=== PATIENT | female | born 1945 | race Caucasian/White ===

== ENCOUNTER 2020-04-09 07:06 | Outpatient (NON) | payer MEDICARE, SELFPAY ==
[2020-04-09 18:21] LABS: SARS-CoV-2 RNA PCR Negative
== END 2020-04-09 07:07 ==
PROVIDERS: PCP Family Medicine; Visit Provider Family Medicine
DX: Z20.828 Contact with and (suspected) exposure to other viral communicable diseases (principal); J02.9 Acute pharyngitis, unspecified
CPT/HCPCS: 87635; C9803; U0003

== ENCOUNTER → 2021-01-19 12:37 | Outpatient (CLI) | payer MEDICARE, SELFPAY ==
--- NOTE | ~2021-01-19 | MM_ITS ---
EXAMINATION: MM screening [facility] BI w jose HISTORY: Screening mammogram, history of right breast cancer TECHNIQUE: Craniocaudal and mediolateral oblique 3-D tomosynthesis images were obtained and synthetic 2-D images were generated. CAD analysis was submitted and interpreted. COMPARISON: 07/15/2019, 08/11/2016, 12/22/2014 BREAST PARENCHYMAL COMPOSITION: There are scattered areas of fibroglandular density. FINDINGS: Again noted are stable lumpectomy changes in the right breast and changes of right axillary lymph node dissection. There is no evidence of suspicious mass, calcification, or architectural dist ortion to suggest malignancy in either breast. There has been no suspicious interval change. IMPRESSION: 1. No mammographic evidence of malignancy. 2. Recommend routine screening mammography in one year. BI-RADS Category 2: Benign finding(s). Reviewed, dictated and finalized at location A.
== END ==
PROVIDERS: Visit Provider Obstetrics & Gynecology
DX: Z12.31 Encounter for screening mammogram for malignant neoplasm of breast (principal)
CPT/HCPCS: 77063; 77067

== ENCOUNTER 2021-08-04 00:17 | Day surgery (SDC) | payer MEDICARE, SELFPAY ==
[2021-07-19 15:08] VITALS: BMI 21.4
--- NOTE | 2021-08-03 13:57 | WPDANESEPPF ---
Anes - Initial Pre Proc Eval Procedure: Operation Date: 08/04/21 08:30 Proposed Procedures p Screening Colonoscopy - Jj Adorno MD Date/Time: 08/03/21 13:57 Surgeon: Jj Adorno MD Pre Op Diagnosis: family hx of colon ca Patient Data Age: 75 Gender: F Height: 1.6 m Weight: 55 kg Allergies Allergy/AdvReac Type Severity Reaction Status Date / Time nickel Allergy Mild RED SKIN Verified 08/04/21 07:37 /ITCHING Sulfa (Sulfonamide Allergy Unknown Unknown Verified 08/04/21 07:37 Antibiotics) sulfanilamide Allergy Unknown Unknown Verified 08/04/21 07:37 BEE STINGS Allergy Severe SEIZURES Uncoded 08/04/21 07:37 Home Medications Medication Instructions Recorded Confirmed Type albuterol sulfate 90 mcg/actuation 2 puff INHALATION Q4H PRN #8.5 g 10/18/20 08/04/21 Rx aerosol inhaler levothyroxine 100 mcg tablet 100 mcg PO DAILY #90 tablet 11/03/20 08/04/21 Rx Vitamin D3 1 tab-cap PO DAILY 07/19/21 08/04/21 History magnesium 1 tab-cap PO DAILY 07/19/21 08/04/21 History vitamin B complex [B 1 tablet PO DAILY 07/19/21 08/04/21 History Complex-Vitamin B12] amlodipine 5 mg tablet 5 mg PO DAILY #90 tablet 08/01/21 08/04/21 Rx Patient hx anesthesia problems: none Family hx anesthesia problems: none Results Review: All pre-operative results and documents have been reviewed as part of the pre-operative evaluation. [facility] Past Medical History Medical History (Updated 08/03/21 @ 13:58 by Ray Pereira DO) Acute non-recurrent maxillary sinusitis Cataract cortical, senile Chronic obstructive pulmonary disease, unspecified Colon cancer screening GERD (gastroesophageal reflux disease) Hypertension Mixed hyperlipidemia Onychomycosis Plantar fasciitis, bilateral Sore throat Tarsal tunnel syndrome of both lower extremities UTI (urinary tract infection) Surgical History Surgical History S/P foot surgery, left Family History Family History Mother Hypertension Carcinoma of colon Family history of diabetes mellitus in first degree relative Family history of coronary artery disease, Onset Age: 88 Patient's mother is Grandparent Hypertension Cerebrovascular accident Family history of coronary artery disease Social History Social History Smoking status: Former smoker Tobacco type: cigarettes Second hand tobacco smoke exposure: No Smoking end date: 08/06/80 Additional smoking assessment comments: very light smoker- for 3 years back in 1960's (few cigarettes per day) Alcohol intake: current Drinks per week: 14 Alcohol use details: 2 glasses of wine per day Substance use: never Substance use type: does not use Living arrangements: with family Anes - Eval Final PreProcedure Day of Procedure 08/03/21 13:57 Patient weight: normal Heart: regular rate and rhythm Lungs: clear to auscultation and normal air movement Airway: Mallampati scale class II Neurological: alert and oriented Last oral intake: >/= 8 hours ASA classification: III Emergent: no Anesthetic plan: proceed Anesthesia type and monitoring: general GIVS and standard monitoring Results Review: All pre-operative results and documents have been reviewed as part of the pre-operative evaluation. Informed Consent: The patient's anesthetic plan and its attendant risks and benefits were discussed with the patient/family/POA. Questions were solicited and answers provided to the satisfaction of the patient/family/POA.
[2021-08-04 07:41] VITALS: BP 147/98; PULSE 75; RESP 16; TEMP 36.3; O2SAT 97
[2021-08-04] MEDS: LACTATED RINGERS 1,000 ML 150 ML IV CONT (07:47)
--- NOTE | 2021-08-04 08:11 | WPDGICN ---
Assessment and Plan Assessment and plan (1) Family history of colon cancer in mother: Code(s): Z80.0 - Family history of malignant neoplasm of digestive organs Status: Acute Assessment and Plan: Patient has a family history of colon cancer in her mother for this reason surveillance colonoscopy is recommended now on a 5 year intervals in the future. GI Consult Note Consult date/time: 08/04/21 08:11 HPI: Molly Gutierrez is a 75 year old female Presents for screening colonoscopy. Patient reports that her current weight appetite bowel movements are normal. Patient's family history is significant that her mother had colon cancer. Patient's last colonoscopy 6 or 7 years ago was unremarkable. Her bowel habits currently are normal. She presents today for neoplasia screening. Review of Systems Review of Systems: All systems reviewed & are unremarkable except as noted in HPI and below PMFSH Past Medical History Medical History (Updated 08/04/21 @ 08:12 by Jj Adorno MD) Acute non-recurrent maxillary sinusitis Cataract cortical, senile Chronic obstructive pulmonary disease, unspecified Colon cancer screening GERD (gastroesophageal reflux disease) Hypertension Mixed hyperlipidemia Onychomycosis Plantar fasciitis, bilateral Sore throat Tarsal tunnel syndrome of both lower extremities UTI (urinary tract infection) Surgical History Surgical History S/P foot surgery, left Family History Family History Mother Hypertension Carcinoma of colon Family history of diabetes mellitus in first degree relative Family history of coronary artery disease, Onset Age: 88 Patient's mother is Grandparent Hypertension Cerebrovascular accident Family history of coronary artery disease Social History Social History Smoking status: Former smoker Tobacco type: cigarettes Second hand tobacco smoke exposure: No Smoking end date: 08/06/80 Additional smoking assessment comments: very light smoker- for 3 years back in 1960's (few cigarettes per day) Alcohol intake: current Drinks per week: 14 Alcohol use details: 2 glasses of wine per day Substance use: never Substance use type: does not use Living arrangements: with family Meds Home Medications and Allergies Home Medications Medication Instructions Recorded Confirmed Type albuterol sulfate 90 mcg/actuation 2 puff INHALATION Q4H PRN #8.5 g 03/15/21 12/30/21 Rx aerosol inhaler levothyroxine 100 mcg tablet 100 mcg PO DAILY #90 tablet 11/03/20 08/04/21 Rx Vitamin D3 1 tab-cap PO DAILY 07/19/21 08/04/21 History magnesium 1 tab-cap PO DAILY 07/19/21 08/04/21 History vitamin B complex [B 1 tablet PO DAILY 07/19/21 08/04/21 History Complex-Vitamin B12] amlodipine 5 mg tablet 5 mg PO DAILY #90 tablet 08/01/21 08/04/21 Rx Allergies Allergy/AdvReac Type Severity Reaction Status Date / Time nickel Allergy Mild RED SKIN Verified 08/04/21 07:37 /ITCHING Sulfa (Sulfonamide Allergy Unknown Unknown Verified 08/04/21 07:37 Antibiotics) sulfanilamide Allergy Unknown Unknown Verified 08/04/21 07:37 BEE STINGS Allergy Severe SEIZURES Uncoded 08/04/21 07:37 Vital Signs Vital Signs - 24 hr 08/04/21 07:41 Temperature 97.4 F L Pulse Rate 75 Respiratory Rate 16 Blood Pressure 147/98 H Pulse Oximetry 97 Exam Narrative: Physical exam reveals patient to be alert. Vital signs stable. HEENT exam is unremarkable. Patient is anicteric. Lungs are clear to auscultation and percussion. Heart is without murmur or extra sounds. Abdominal exam bowel sounds present soft nontender with no organomegaly. Digital external rectal exam is normal.
[2021-08-04 08:41] VITALS: BP 107/66; PULSE 72; RESP 20; O2SAT 98
[2021-08-04 08:51] VITALS: BP 110/64; PULSE 73; RESP 20; O2SAT 98
[2021-08-04 09:01] VITALS: BP 116/77; PULSE 64; RESP 19; O2SAT 98
--- NOTE | 2021-08-04 09:06 | SUR.PHASEII ---
RN spoke with patient's significant other, John, and provided patient status update
== END 2021-08-04 09:19 | disposition home or self-care (01) ==
PROVIDERS: PCP Family Medicine; Visit Provider Internal Medicine Gastroenterology
PROC: 0DJD8ZZ Inspection of Lower Intestinal Tract, Via Natural or Artificial Opening Endoscopic (ICD-10-PCS; CPT 45378; principal; 2021-08-04 08:30)
DX: Z12.11 Encounter for screening for malignant neoplasm of colon (principal); Z80.0 Family history of malignant neoplasm of digestive organs; K64.8 Other hemorrhoids; J44.9 Chronic obstructive pulmonary disease, unspecified; K21.9 Gastro-esophageal reflux disease without esophagitis; I10 Essential (primary) hypertension; E78.2 Mixed hyperlipidemia; B35.1 Tinea unguium; M72.2 Plantar fascial fibromatosis; G57.53 Tarsal tunnel syndrome, bilateral lower limbs; Z87.891 Personal history of nicotine dependence; Z79.51 Long term (current) use of inhaled steroids; E03.9 Hypothyroidism, unspecified
CPT/HCPCS: G0105; J2704; J7120

== ENCOUNTER → 2021-08-17 16:53 | Outpatient (CLI) | payer MEDICARE, SELFPAY ==
--- NOTE | ~2021-08-17 | XR_ITS ---
EXAMINATION: XR chest 2V DATE: 08/17/2021 17:05 INDICATION: Acute bronchitis, persistent cough TECHNIQUE: PA and lateral views of the chest are obtained. COMPARISON: 06/14/2017, 02/16/2015 FINDINGS: The lungs are free of acute opacities. There is a chronic and unchanged nodular opacity pro jecting anteriorly in the right upper lobe. Surgical changes are noted in the right breast and right axilla. There is no pleural effusion or pneumothorax. The cardiomediastinal silhouette is normal. The re is moderate thoracic spondylosis. IMPRESSION: 1. No acute cardiopulmonary abnormality. Reviewed, dictated and finalized at location F. MING PROFESSOR
== END ==
PROVIDERS: PCP Family Medicine; Visit Provider Family Medicine
DX: J20.9 Acute bronchitis, unspecified (principal)
CPT/HCPCS: 71046

== ENCOUNTER → 2021-09-13 13:34 | Outpatient (CLI) | payer MEDICARE, SELFPAY ==
--- NOTE | ~2021-09-13 | DEXA_ITS ---
Bone Density Report Name: PENG POSADAS Age: 76 Sex: Female Ethnicity: White Date of : 1945 Indication: osteopenia; height loss; postmenopausal Referring Provider: DECLAN SCHMITT Study: Bone densitometry was performed. Exam Date: September 13, 2021 Accession number: [id number] Bone Density: Region BMD T-score Z-score Classification AP Spine (L1-L4) 0.796 -2.3 0.1 Osteopenia Femoral Neck (Left) 0.679 -1.5 0.6 Osteopenia Total Hip (Left) 0.815 -1.0 0.7 Normal Femoral Neck (Right) 0.669 -1.6 0.5 Osteopenia Total Hip (Right) 0.821 -1.0 0.8 Normal Total Hip Mean 0.818 -1.0 0.8 Normal World Health Organization criteria for BMD impression classify patients as: Normal (T-score at or above -1.0), Osteopenia (T-score between -1.0 and -2.5), or Osteoporosis (T-score at or below -2.5). 10-year Fracture Risk(1): Major Osteoporotic Fracture 11% Hip Fracture 2.4% Reported Risk Factors: [place] (), Neck BMD=0.669, BMI=21.9 (1) FRAX(R) Version 3.08. Fracture probability calculated for an untreated patient. Fracture probability may be lower if the patient has received treatment. Previous Exams: Region Exam Age BMD T-score BMD Change BMD Change Date g/cm2 vs Baseline vs Previous AP Spine(L1-L4) 09/13/2021 76 0.796 -2.3 -0.075* -0.075* 08/23/2015 69 0.872 -1.6 Total Hip(Left) 09/13/2021 76 0.815 -1.0 -0.083* -0.083* 08/23/2015 69 0.899 -0.4 Total Hip(Right) 09/13/2021 76 0.821 -1.0 -0.060* -0.060* 08/23/2015 69 0.881 -0.5 *Denotes significance at 95% confidence level, LSC for AP Spine = 0.022 g/cm2, LSC for Total Hip = 0.027 g/cm2 Clinical Information Provided by Patient: Has used the following medications: Vitamin D Patient maximum height was 63.5 Menopause Age: 47 Drinks caffeinated beverages Onset of menses at age 15 Number of children 0 Impression: The patient has low bone mass, based on the Total Spine T-score. The patient has an estimated ten-year risk of hip fracture of 2.4% and an estimated ten-year risk of major fracture of 11%, based on the WHO FRAX algorithm. The BMD for the AP Spine(L1-L4) decreased, changing by -0.075 since the last DXA exam. The BMD for the Total Hip(Left) decreased, changing by -0.083 since the last DXA exam. The BMD for the Total Hip(Right) decreased, changing by -0.060 since the last DXA exam. Discussion: BONE DENSITY IS LOW A
== END ==
PROVIDERS: PCP Family Medicine; Visit Provider Obstetrics & Gynecology
DX: Z78.0 Asymptomatic menopausal state (principal); M85.89 Other specified disorders of bone density and structure, multiple sites
CPT/HCPCS: 77080

== ENCOUNTER → 2022-03-01 13:18 | Outpatient (CLI) | payer MEDICARE, SELFPAY ==
--- NOTE | ~2022-03-01 | MM_ITS ---
EXAMINATION: MM screening [facility] BI w jose HISTORY: Screening mammogram TECHNIQUE: Craniocaudal and mediolateral oblique 3-D tomosynthesis images were obtained and synthetic 2-D images were generated. CAD analysis was submitted and interpreted. COMPARISON: 01/19/2021, 07/15/2019 bilateral screening mammogram examinations BREAST PARENCHYMAL COMPOSITION: There are scattered areas of fibroglandular density. FINDINGS: There is postoperative change and scarring and retraction in the upper outer quadrant of th e right breast, stable since 07/15/2019. Right axillary surgical clips from prior axillary node disse ction. There is no evidence of suspicious mass, calcification, or architectural distortion to suggest malignancy in either breast. There has been no suspicious interval change. IMPRESSION: 1. Status post right partial mastectomy and axillary node dissection for right breast malignancy. No mammographic evidence of malignancy. 2. Recommend routine screening mammography in one year. BI-RADS Category 2: Benign finding(s). Reviewed, dictated and finalized at location A.
== END ==
PROVIDERS: PCP Family Medicine; Visit Provider Obstetrics & Gynecology
DX: Z12.31 Encounter for screening mammogram for malignant neoplasm of breast (principal)
CPT/HCPCS: 77063; 77067

== ENCOUNTER → 2023-05-17 12:07 | Outpatient (CLI) | payer MEDICARE, SELFPAY ==
--- NOTE | ~2023-05-17 | MM_ITS ---
EXAMINATION: MM screening rona BI w jose HISTORY: Screening mammogram TECHNIQUE: Craniocaudal and mediolateral oblique 3-D tomosynthesis images were obtained and synthetic 2-D images were generated. CAD analysis was submitted and interpreted. COMPARISON: 03/01/2022, 6 I , 07/15/2019 bilateral screening mammogram examinations BREAST PARENCHYMAL COMPOSITION: There are scattered areas of fibroglandular density. FINDINGS: Postsurgical changes in addition to chronic scarring, architectural distortion and overlyin g retraction are noted at the upper outer quadrant of the right breast. There is no evidence of suspicious mass, calcification, or new architectural distortion to suggest ma lignancy in either breast. There has been no suspicious interval change. IMPRESSION: 1. Status post right partial mastectomy for breast cancer. No mammographic evidence of malignancy. 2. Recommend routine screening mammography in one year. BI-RADS Category 2: Benign finding(s). Reviewed, dictated and finalized at location A. IMPRESSION: 1. Status post right partial mastectomy for breast cancer. No mammographic evid ence of malignancy. 2. Recommend routine screening mammography in one year. BI-RADS Category 2: Benign finding(s).
== END ==
PROVIDERS: PCP Family Medicine; Visit Provider Obstetrics & Gynecology
DX: Z12.31 Encounter for screening mammogram for malignant neoplasm of breast (principal)
CPT/HCPCS: 77063; 77067

== ENCOUNTER → 2023-06-12 09:41 | Outpatient (CLI) | payer MEDICARE, SELFPAY ==
--- NOTE | ~2023-06-12 | US_ITS ---
EXAMINATION: US thyroid DATE: 06/12/2023 10:12 INDICATION: Nontoxic goiter, unspecified. TECHNIQUE: Multiple ultrasound images of the thyroid were obtained. COMPARISON: None. FINDINGS: The right thyroid lobe measures 6.7 x 2.9 x 3.4 cm. The left thyroid lobe measures 6.4 x 3.4 x 3.1 c m. The thyroid is filled with nodules of similar ultrasound appearance without normal intervening pa renchyma. For example, in the right thyroid lobe there is a 1.8 cm solid, isoechoic, wider than tall nodule with ill-defined margin without echogenic foci (TI-RADS TR3). In the right thyroid lobe, there is a 2.0 cm solid, isoechoic, wider than tall nodule with smooth margin without echogenic foci (TR3) . IMPRESSION: 1. Multinodular goiter. Consider thyroid ultrasound in one year. Reviewed, dictated and finalized at location E. STACKER
== END ==
PROVIDERS: PCP Family Medicine; Visit Provider Obstetrics & Gynecology
DX: E04.2 Nontoxic multinodular goiter (principal)
CPT/HCPCS: 76536

== ENCOUNTER 2024-05-22 07:12 | Outpatient (CLI) | payer MEDICARE, SELFPAY ==
--- NOTE | ~2024-05-22 | MM_ITS ---
EXAMINATION: MM screening rona BI w jose HISTORY: Screening TECHNIQUE: Craniocaudal and mediolateral oblique 3-D tomosynthesis images were obtained and synthetic 2-D images were generated. CAD analysis was submitted and interpreted. COMPARISON: Comparison to multiple prior studies sequentially, with oldest reviewed study dated 01/2017. BREAST PARENCHYMAL COMPOSITION: Not dense: There are scattered areas of fibroglandular density. FINDINGS: At the lumpectomy site of the right breast in the upper outer quadrant there are a few deve loping punctate calcifications. The left breast is stable without evidence for malignancy. IMPRESSION: 1. Developing clustered punctate calcifications in the upper outer quadrant of the right breast at pr ior lumpectomy site. 2. Magnification views are recommended. BI-RADS Category 0: Incomplete: Needs additional imaging evaluation. Reviewed, dictated and finalized at location B. IMPRESSION: 1. Developing clustered punctate calcifications in the upper outer quadrant of the right breast at prior lumpectomy site. 2. Magnification views are recommended. BI-RADS Category 0: Incomplete: Needs additional imaging evaluation.
== END 2024-05-22 07:13 | disposition home or self-care (01) ==
PROVIDERS: PCP Family Medicine; Visit Provider Obstetrics & Gynecology
DX: Z12.31 Encounter for screening mammogram for malignant neoplasm of breast (principal); R92.1 Mammographic calcification found on diagnostic imaging of breast; Z98.890 Other specified postprocedural states
CPT/HCPCS: 77063; 77067

== ENCOUNTER 2024-06-13 07:50 | Outpatient (CLI) | payer MEDICARE, SELFPAY ==
--- NOTE | ~2024-06-13 | MM_ITS ---
EXAMINATION: MM diagnostic mammo unilat RT HISTORY: Follow-up right breast calcifications TECHNIQUE: Additional 3-D tomosynthesis images of the right breast were performed and synthetic 2-D i mages were generated. CAD analysis was submitted and interpreted. COMPARISON: Comparison to multiple prior studies sequentially, with oldest reviewed study dated 2016. BREAST PARENCHYMAL COMPOSITION: Dense: The breasts are heterogeneously dense, which may obscure small masses FINDINGS: Stable architectural distortion in the upper outer quadrant of the right breast with associ ated marker. There are punctate benign-appearing calcifications in the prior lumpectomy bed. No suspi cious masses, calcifications or architectural distortion to suggest malignancy. IMPRESSION: 1. No evidence for malignancy in the right breast. Benign appearing calcifications. 2. Routine yearly screening mammogram and regular clinical breast examination are recommended. BI-RADS Category 2: Benign finding(s). Reviewed, dictated and finalized at location B. DING INSPECTOR IMPRESSION: 1. No evidence for malignancy in the right breast. Benign appearing calcificati ons. 2. Routine yearly screening mammogram and regular clinical breast examination a re recommended. BI-RADS Category 2: Benign finding(s).
== END 2024-06-13 07:51 | disposition home or self-care (01) ==
LOC: MICIMG 07:51
PROVIDERS: PCP Family Medicine; Visit Provider Obstetrics & Gynecology
DX: R92.8 Other abnormal and inconclusive findings on diagnostic imaging of breast (principal)
CPT/HCPCS: 77065

== ENCOUNTER → 2024-06-23 09:06 | Outpatient (CLI) | payer MEDICARE, SELFPAY ==
--- NOTE | ~2024-06-23 | XR_ITS ---
3 VIEWS LUMBAR SPINE Ordering provider: Selwyn Flores MD History: . M54.42 - Lumbago with sciatica, left side . Comparison: None. FINDINGS: VERTEBRAL BODIES:Minimal retrolisthesis seen at the level of L2-L3. No visible fracture or subluxati on. Degenerative changes of the spine. DISK SPACES: Narrowing of the disc L1-L2, L2-L3, L3-L4, L4-L5 and L5-S1. Multilevel facet joint disea se. SOFT TISSUES: Normal. IMPRESSION: No acute osseous abnormality lumbar spine. Reviewed, dictated and finalized at location A. ER BENCH
== END ==
LOC: EXPTROY 09:09
PROVIDERS: PCP Family Medicine; Visit Provider Family Medicine
DX: M54.42 Lumbago with sciatica, left side (principal)
CPT/HCPCS: 72110

== ENCOUNTER → 2024-11-24 13:55 | Outpatient (CLI) | payer MEDICARE, SELFPAY ==
--- NOTE | ~2024-11-24 | XR_ITS ---
CHEST RADIOGRAPH, PA AND LATERAL CLINICAL HISTORY: Persistent cough . COMPARISON: 08/17/2021 TECHNIQUE: PA and lateral views of the chest. FINDINGS The cardiomediastinal silhouette is unremarkable. Persistent nodularity within the upper outer anterior right chest, stable from 2021. Biapical scarring, left greater than right. The lungs are otherwise clear. IMPRESSION: No focal infiltrate or effusion. Reviewed, dictated and finalized at location A.
--- OUTSIDE RECORDS SUMMARY | 2024-11-24 15:50 | XMS_ITS | Encounter Summary ---
Author Organization [facility] Address [address] [place] [address] Care Team Providers Care Public Safety Dispatcher Name Role Phone Selwyn Flores MD Primary Care Provider [phone] Encounter Details Date Type Department Care Team (Latest Contact Info) Description 04/15/2008 Outpatient Historical [facility] Boogie Rubi MD [address] [address] Malignant Neoplasm of Upper-Outer Quadrant of Female Breast (CMS/HCC) Social History Tobacco Use Types Packs/Day Years Used Date Smoking Tobacco: Never Assessed Comments Unknown Sex and Gender Information Value Date Recorded Sex Assigned at Not on file Legal Sex Female 5:30 AM PHARMACIST INTERN Gender Identity Not on file Sexual Orientation Not on file documented as of this encounter Plan of Treatment Not on file documented as of this encounter Visit Diagnoses Diagnosis Malignant neoplasm of upper-outer quadrant of female breast (CMS/HCC) Malignant neoplasm of upper-outer quadrant of female breast documented in this encounter Care Teams Public Safety Dispatcher Relationship Specialty Start Date End Date Selwyn Flores MD [address] [place] [id number] PCP - General Family Practice 01/24/12 documented as of this encounter
--- OUTSIDE RECORDS SUMMARY | 2024-11-24 15:50 | XMS_ITS | Clinical Summary ---
Author Organization [facility] [place] Address [address] [place] [address] Care Team Providers Care Pigment Mixer Name Role Phone Selwyn Flores MD Primary Care Provider [phone] Social History Tobacco Use Types Packs/Day Years Used Date Smoking Tobacco: Never Assessed Comments Unknown Sex and Gender Information Value Date Recorded Sex Assigned at Not on file Legal Sex Female 4:24 PM CDT Gender Identity Not on file Sexual Orientation Not on file Plan of Treatment Health Maintenance Due Date Last Done Comments Hepatitis C 1964 DTaP, Tdap and Td Vaccines ( 1 - Tdap) 1965 Pneumococcal Vaccine: 50+ Ye ars (1 of 1 - PCV) 1996 Zoster Vaccines (1 of 2) 1996 Annual Medicare Wellness Visit 2011 Dexa Scan (General) 2011 RSV Immunization or 60+ Years (1 - 1-dose 75+ series) 2021 COVID-19 Vaccine ( - 2023-2 5 season) 2024 Meningococcal B Vaccine Aged Out No l onger eligible based on patient's age to complete this topic Meningococcal Vaccine Aged Out No kaiser trudy eligible based on patient's age to complete this topic RSV Immunizations Under 20 Months Aged Out No longer eligible based on patient's age to complete this topic Insurance MEDICARE [facility] Care Teams Pigment Mixer Relationship Specialty Start Date End Date Selwyn Flores MD [address] [place] [address] [address] [place] [address] PCP - General FAMILY PRACTICE 09/18/19
--- OUTSIDE RECORDS SUMMARY | 2024-11-24 15:50 | XMS_ITS | Clinical Summary ---
Author Organization [facility] Address [address] [place] [address] Phone Care Team Providers Care Promotional Advertising Assistant Name Role Phone Selwyn Flores MD Primary Care Provider [phone] Allergies Active Allergy Reactions Criticality Noted Date Comments Sulfa (Sulfonamide Antibiotics) Itching Low 11/2010 Medications Levothyroxine 75 mcg Oral Cap Take 1 Tab by mouth daily. Active aspirin (MANJU) 81 mg Oral Tab Take 1 Tab by mouth daily. Active amLODIPine (NORVASC) 5 mg Oral tablet Take 1 Tab by mouth daily. Active Family History Medical History Relation Name Comments Cancer Mother Relation Name Status Comments Mother Social History Tobacco Use Types Packs/Day Years Used Date Smoking Tobacco: Former Cigarettes 0 08/06/1963 - 08/06/1969 Smokeless Tobacco: Never Alcohol Use Standard Drinks/Week Comments Yes 1.7 (1 standard drink = 0.6 oz p ure alcohol) Comments Unknown Sex and Gender Information Value Date Recorded Sex Assigned at Not on file Legal Sex Female 5:30 AM DIRECTOR MISSION Gender Identity Not on file Sexual Orientation Not on file Last Filed Vital Signs Vital Sign Reading Time Taken Comments Blood Pressure 130/81 12/04/2012 10:37 AM CDT Pulse 64 12/04/2012 10:37 AM CDT Temperature 36.4 C (97.6 F) 12/04/2012 10:37 AM CDT Respiratory Rate 18 12/04/2012 10:37 AM CDT Oxygen Saturation 98% 12/04/2012 10:37 AM CDT Inhaled Oxygen Concentration - - Weight 52.6 kg (116 lb) 12/04/2012 10:37 AM CDT Height 162.6 cm (5' 4 ) 01/24/2012 1:56 PM CDT Body Mass Index 19.91 01/24/2012 1:56 PM CDT Plan of Treatment Health Maintenance Due Date Last Done Comments DTAP/TDAP/TD VACCINES (1 - Tdap) 1965 PNEUMOCOCCAL VACCINE 50+ YEARS (1 of 1 - PCV) 09/02/18 97 ZOSTER VACCINE (1 of 2) 1996 OSTEOPOROSIS SCREENING 2011 RSV VACCINE (60+ or ) (1 - 1-dose 75+ series) 2021 INFLUENZA VACCINE (#1) 2024 Insurance MEDICARE PART A [place] [id number] Care Teams Promotional Advertising Assistant Relationship Specialty [place] [address] [place] [phone] PCP - General Family Practice 01/24/12
--- OUTSIDE RECORDS SUMMARY | 2024-11-24 15:50 | XMS_ITS | Encounter Summary ---
Author Organization [facility] Address [address] [place] [address] Care Team Providers Care Antique Refinisher Name Role Phone Selwyn Flores MD Primary Care Provider [phone] Encounter Details Date Type Department Care Team (Latest Contact Info) Description 04/15/2008 Outpatient Historical [facility] Kristi Tolentino MD [address] [place] [address] Malignant Neoplasm of Breast (Female), Unspecified Site (CMS/HCC) Social History Tobacco Use Types Packs/Day Years Used Date Smoking Tobacco: Never Assessed Comments Unknown Sex and Gender Information Value Date Recorded Sex Assigned at Not on file Legal Sex Female 5:30 AM RETAIL PRICING COORDINATOR Gender Identity Not on file Sexual Orientation Not on file documented as of this encounter Plan of Treatment Not on file documented as of this encounter Procedures Procedure Name Priority Date/Time Associated Diagnosis Comments XR CHEST PA AND LATERAL 2 VW Routine 04/15/2008 9:37 AM CDT documented in this encounter Results * XR CHEST PA AND LATERAL (04/15/2008 9:37 AM CDT) Anatomical Region Laterality Modality Chest Other 04/15/2008 9:37 AM CDT Narrative 04/16/2008 1:03 PM CDT [address] [address] Admit Date: 04/15/2008 MOLLY GUTIERREZ Sex: F Admit Prov: KRISTI TOLENTINO Date: 1945 Primary Care Prov: CMRN: [id number] [id number] IM[facility] Ordering Prov: N/A Accession Number: [id number] Interpretation CHEST 2 VIEWS, 04/15/08 History: Breast cancer. Findings: Examination of the chest in PA and lateral views fails to reveal evidence of active infiltration or consolidation in either lung and there is no effusion or pneumothorax. The heart, aorta and diaphragm, and other mediastinal structures are normal in size, shape and position. The bony structures are unremarkable. Impression: Negative chest. . Dictated by: GHADA MCDANIEL 04/15/2008 09:40 Electronically signed by: GHADA MCDANIEL 04/16/2008 13:02 Transcribed: 04/15/2008 12:08 LE Procedure Note Ghada Mcdaniel MD - 04/16/[address] [address] Admit Date: 04/15/2008 MOLLY GUTIERREZ Sex: F Admit Prov: KRISTI TOLENTINO Date: 1945 Primary Care Prov: CMRN: [id number] [facility] [id number] IM[facility]ING SERVICES Ordering Prov: N/A Interpretation CHEST 2 VIEWS, 04/15/08 History: Breast cancer. Findings: Examination of the chest in PA and lateral views fails toreveal evidence of active infiltration or consolidation in either lung andthere is no effusion or pneumothorax. The heart, aorta and diaphragm, andother mediastinal structures are normal in size, shape and position. Thebony structures are unremarkable. Impression: Negative chest. . Dictated by: GHADA MCDANIEL 04/15/2008 09:40 Electronically signed by: GHADA MCDANIEL 04/16/2008 13:02 Transcribed: 04/15/2008 12:08 LE Kristi Tolentino MD DIAGNOSTIC IMAGING ORDERABLE S Final Result documented in this encounter Visit Diagnoses Diagnosis Malignant neoplasm of breast (female), unspecified site documented in this encounter Care Teams Antique Refinisher Relationship Specialty Start Date End Date Selwyn Flores MD [address] [place] [phone] PCP - General Family Practice 01/24/12 documented as of this encounter
--- OUTSIDE RECORDS SUMMARY | 2024-11-24 15:50 | XMS_ITS | Encounter Summary ---
Author Organization [facility] Address [address] [place] [address] Care Team Providers Care Paper Bundler Name Role Phone Selwyn Flores MD Primary Care Provider Encounter Details Date Type Department Care Team (Latest Contact Info) Description 03/25/2008 Outpatient [facility] Boogie Rubi MD [address] [address] Malignant Neoplasm of Upper-Outer Quadrant of Female Breast (CMS/HCC) Social History Tobacco Use Types Packs/Day Years Used Date Smoking Tobacco: Never Assessed Comments Unknown Sex and Gender Information Value Date Recorded Sex Assigned at Not on file Legal Sex Female 5:30 AM HEALTH SERVICES RN Gender Identity Not on file Sexual Orientation Not on file documented as of this encounter Plan of Treatment Not on file documented as of this encounter Visit Diagnoses Diagnosis Malignant neoplasm of upper-outer quadrant of female breast (CMS/HCC) Malignant neoplasm of upper-outer quadrant of female breast documented in this encounter Care Teams Paper Bundler Relationship Specialty Start Date End Date Selwyn Flores MD [address] [place] [phone] PCP - General Family Practice 01/24/12 documented as of this encounter
--- OUTSIDE RECORDS SUMMARY | 2024-11-24 15:50 | XMS_ITS | Encounter Summary ---
Author Organization [facility] Address [address] [place] [address] Care Team Providers Care Carton Making Machine Operator Name Role Phone Selwyn Flores MD Primary Care Provider [phone] Encounter Details Date Type Department Care Team (Late st Contact Info) Description 09/24/2007 Outpatient [facility] Boogie Rubi MD [address] [place] [address] Social History Tobacco Use Types Packs/Day Years Used Date Smoking Tobacco: Never Assessed Comments Unknown Sex and Gender Information Value Date Recorded Sex Assigned at Not on file Legal Sex Female 5:30 AM BRANCH EMPLOYMENT COORDINATOR Gender Identity Not on file Sexual Orientation Not on file documented as of this encounter Plan of Treatment Not on file documented as of this encounter Visit Diagnoses Not on filedocumented in this encounter Care Teams Carton Making Machine Operator Relationship Specialty [place] [address] [place] [phone] PCP - General Family Practice 01/24/12 documented as of this encounter
--- OUTSIDE RECORDS SUMMARY | 2024-11-24 15:50 | XMS_ITS | Encounter Summary ---
Author Organization [facility] Address [address] [place] [address] Care Team Providers Care Cnc Maintenance Technician Name Role Phone Selwyn Flores MD Primary Care Provider Encounter Details Date Type Department Care Team (Late st Contact Info) Description 08/23/2007 Outpatient [facility] Boogie Rubi MD [address] [place] [address] Social History Tobacco Use Types Packs/Day Years Used Date Smoking Tobacco: Never Assessed Comments Unknown Sex and Gender Information Value Date Recorded Sex Assigned at Not on file Legal Sex Female 5:30 AM MARKET RESEARCH COORDINATOR Gender Identity Not on file Sexual Orientation Not on file documented as of this encounter Plan of Treatment Not on file documented as of this encounter Visit Diagnoses Not on filedocumented in this encounter Care Teams Cnc Maintenance Technician Relationship Specialty [place] [address] [place] [phone] PCP - General Family Practice 01/24/12 documented as of this encounter
--- OUTSIDE RECORDS SUMMARY | 2024-11-24 15:50 | XMS_ITS | Encounter Summary ---
Author Organization [employer] Address [address] [place] [address] Care Team Providers Care Office Technician Name Role Phone Selwyn Flores MD Primary Care Provider [phone] Encounter Details Date Type Department Care Team (Latest Contact Info) Description 09/23/2008 Outpatient [facility] Boogie Rubi MD [address] [address] Malignant Neoplasm of Upper-Outer Quadrant of Female Breast (CMS/HCC) Social History Tobacco Use Types Packs/Day Years Used Date Smoking Tobacco: Never Assessed Comments Unknown Sex and Gender Information Value Date Recorded Sex Assigned at Not on file Legal Sex Female 5:30 AM PHOTOVOLTAIC TECHNICIAN Gender Identity Not on file Sexual Orientation Not on file documented as of this encounter Plan of Treatment Not on file documented as of this encounter Visit Diagnoses Diagnosis Malignant neoplasm of upper-outer quadrant of female breast (CMS/HCC) Malignant neoplasm of upper-outer quadrant of female breast documented in this encounter Care Teams Office Technician Relationship Specialty Start Date End Date Selwyn Flores MD [address] [place] [phone] PCP - General Family Practice 01/24/12 documented as of this encounter
== END ==
LOC: EXPTRAD 13:56
PROVIDERS: PCP Family Medicine; Visit Provider Family Medicine
DX: J20.9 Acute bronchitis, unspecified (principal)
CPT/HCPCS: 71046

== ENCOUNTER 2025-05-01 16:48 | Emergency (ER) | payer MEDICARE, SELFPAY ==
--- OUTSIDE RECORDS SUMMARY | 2009-11-09 11:15 | XMS_ITS | Continuity of Care Document ---
Author Organization [facility] Address [address] [facility] [address] [place] [address] Phone Care Team Providers Care Punch Press Feeder Name Role Phone Bhavna Bradford Unavailable Unavailable Procedures Procedure Date Eye Exam & Treatment Refraction Eye Exam, New Patient Advance Directives Directive Yes / No Effective Date File Name No Information Encounters Encounter Description Practice Location Reason(s) For Visit Diagnoses Date Provider Providers Copied on Encounter [facility], [address] [place] [address] [address], [place], [place], [id number], tel:[phone] [facility] No Information 6-201 0 Suzette Villeda [address] , [address], [place], [place], [facility], [place]. tel:[phone] [facility], [address] [place] [address] [address], [place], [place], [address], tel:[phone] [facility] No Information 9-201 0 Suzette Villeda [address] , [address], [place], [address], [place]. tel:[phone] Family History Family Member Type Diagnosis Age At Onset No Information Payers Payer name Insurance type Covered democrat ID Authorcaioa linda(s) [facility] Out Of State [id number] Social History Type Description Quantity Date Captured [...]
--- NOTE | ~2025-05-01 | US_ITS ---
EXAMINATION: US venous doppler LE RT, 05/01/2025 17:49 CDT HISTORY: r/o dvt Comparison: None Technique: Allison-scale and color Doppler images were attempted of the lower saphenofemoral junction, common femoral vein,superficial femoral vein, proximal deep femoral vein, proximal deep femoral vein, popliteal vein and posterior tibial veins. Findings: Deep Venous System:Normal flow, augmentation and compressibility. No echogenic thrombus identified. The contralateral saphenofemoral junction appears unremarkable. Superficial Venous SystemNo superficial thrombophlebitis. Soft tissues: Soft tissues are unremarkable. Impression: Negative for DVT. Reviewed, dictated and finalized at location P. Impression: Negative for DVT.
[2025-05-01 16:49] VITALS: BP 157/87; PULSE 86; RESP 16; TEMP 36.8; O2SAT 98
--- NOTE | 2025-05-01 19:26 | ED_ITS ---
HPI - Extremity Problem General Chief complaint: Extremity Problem,Nontraumatic Stated complaint: r/o dvt Time Seen by Provider: 05/01/25 19:16 History of Present Illness HPI Narrative: Patient is a 71-year-old female who presents emergency department this evening after being sent in from urgent care for evaluation for possible DVT. Patient states that she was recently on a trip and returned from [place] recently. Patient states that she had swelling to her right lower extremity right above her right ankle but states that since then the swelling has subsided. She wanted to make sure that the swelling since was unilateral was not due to DVT. Urgent care sent her here for right lower extremity ultrasound. Otherwise patient denies any additional symptoms or concerns. Related Data Home Medications ?Medication ?Instructions ?Recorded ?Confirmed ?Last Taken ?Type Vitamin D3 1 tab-cap PO DAILY 07/19/21 02/05/25 08/03/21 07:00 History vitamin B complex (B 1 tablet PO DAILY 07/19/21 0 02/05/25 08/03/21 07:00 History Complex-Vitamin B12 tablet) magnesium oxide 250 mg PO BID 05/23/2302/05 Unknown History Allergies Allergy/AdvReac Type Severity Reaction Status Date / Time nickel Allergy Mild RED SKIN Verified 05/01/25 16:51 /ITCHING Sulfa (Sulfonamide Allergy Unknown Unknown Verified 05/01/25 16:51 Antibiotics) sulfanilamide Allergy Unknown Unknown Verified 05/01/25 16:51 BEE STINGS Allergy Severe SEIZURES Uncoded 06/18/23 09:48 Review of Systems Review of Systems: All systems are reviewed and are negative unless stated otherwise in the HPI. REPLACED BY [facility] Past Medical History Medical History Chronic pain of left knee Sore throat Cataract cortical, senile cataract surgery GERD (gastroesophageal reflux disease) Chronic bilateral low back pain with left-sided sciatica X-ray of the lumbar spine on 06/23/2024 with mild degenerative disc disease and arthritis. BMI 22.0-22.9, adult At low risk for fall Muscle spasm abdominal wall muscle At moderate risk for fall (~2021) step ladder collapsed, no problem with balance or falling Breast cancer screening by mammogram Normal mammogram 01/19/2021. Mammogram normal 03/01/2022. Mammogram 05/17/2023 Was unremarkable. Recheck 1 year. Normal mammogram 06/13/2024. Osteopenia after menopause (~09/21/21) DEXA scan on 09/13/2021 with T-score -2.3 of the lumbar spine and -1.0 at the left hip and -1.0 at the right hip. Carpal tunnel syndrome, left BMI 21.0-21.9, adult Vertigo Acute bronchitis Chest x-ray on 08/17/2021 unremarkable. no Pneumonia Hypertension Onychomycosis UTI (urinary tract infection) Colon cancer screening colonoscopy on 08/04/2021 was normal. Recheck in 5 years for family history Plantar fasciitis, bilateral orthotics for 30 years Acute non-recurrent maxillary sinusitis Tarsal tunnel syndrome of both lower extremities orthotics help Carpal tunnel syndrome on both sides Chronic obstructive pulmonary disease, unspecified Mixed hyperlipidemia Overall excellent profile with total cholesterol 218, HDL 107, triglycerides 43, LDL 98 with ratio 2.0 on 11/02/2022. Cholesterol 236, HDL 111, triglycerides 79, LDL 108 with ratio of 2.1 on 11/07/2023. Cholesterol 236, triglycerides 74, HDL 112, LDL 89 with ratio of 1.9 on 06/19/2024. Cholesterol 217, triglycerides 58, HDL 114 with LDL 89 and ratio 1.9 on 01/04. Surgical History Surgical History Hx of blepharoplasty Hx of carpal tunnel repair Hx of rotator cuff surgery Hx of breast reconstruction S/P foot surgery, left (~2021) Family History Family History Mother Hypertension Carcinoma of colon Family history of diabetes mellitus in first degree relative Family history of coronary artery disease, Onset Age: 88 Patient's mother is Grandparent Hypertension Cerebrovascular accident Family history of coronary artery disease Social History Social History Smoking status: Former smoker Tobacco type: cigarettes Second hand tobacco smoke exposure: No Smoking end date: 08/06/80 Additional smoking assessment comments: very light smoker- for 3 years back in 1960's (few cigarettes per day) Alcohol intake: current Drinks per week: 14 Alcohol use details: 2 glasses of wine per day Substance use: never Substance use type: does not use Lack of Transportation: No Lack of Food: Never True Current Housing: I Have Housing Concerned About Future Housing: No Difficulty Paying Gas/Electric Bills: No Difficulty Paying for Meds: No Currently Unemployed: No Education: Bachelor's Degree Difficulty w/ Childcare or Family Care: No Living arrangements: with family Exam Narrative: General: Alert, awake, afebrile, in no acute distress. HEENT: PERRL, no rhinorrhea, no post nasal drip, oropharynx clear. Neck: Trachea midline, no JVD, no lymphadenopathy. Cardiovascular: Regular rate and rhythm, no murmurs, rubs or gallops, no peripheral edema. Respiratory: Clear to auscultation bilaterally, no tachypnea, no wheezing, no rhonchi, no rubs, no respiratory distress. Abdomen: Soft, nontender, nondistended, no rebound, no guarding, no peritoneal signs. Musculoskeletal: No joint swelling or deformity specifically to the right lower extremity, normal muscle tone. Skin: No rashes or petechia, no signs of infection. Psychiatric: Alert and oriented, normal behavior and judgment for situation. Neurological: Alert and oriented to person, place, and time. Follows all commands. No focal deficits, speech is clear and fluent. Course Vital Signs Vital signs: Vital Signs Temperature 98.2 F 05/01/25 16:49 Pulse Rate 86 05/01/25 16:49 Respiratory Rate 16 05/01/25 16:49 Blood Pressure 157/87 H 05/01/25 16:49 Pulse Oximetry 98 05/01/25 16:49 Temperature 98.2 F 05/01/25 16:49 Pulse Rate 86 05/01/25 16:49 Respiratory Rate 16 05/01/25 16:49 Blood Pressure 157/87 H 05/01/25 16:49 Pulse Oximetry 98 05/01/25 16:49 MDM - Extremity (Nontraumatic) MDM Narrative Medical decision making narrative: The patient was evaluated by myself in the emergency department. History is obtained from patient who is an independent historian and physical exam was performed. External medical records were reviewed at this time. Imaging studies obtained included right lower extremity venous duplex ultrasound which was independently interpreted by me revealing no acute process, which is pending final radiology interpretation. Differential diagnosis considerations include DVT, cellulitis, pitting edema, lymphedema. Comorbidities impacting this visit include recent international travel. I have evaluated and discussed social determinants of health with the patient that could potentially impact subsequent diagnosis and treatment plans. On repeat assessment of the patient, reevaluation revealed that the patient is doing well and is in no acute distress. Patient symptoms have improved since she arrived to our emergency department. Repeat vital signs were all reviewed and noted to be stable. Differential diagnosis and treatment plan were discussed with the patient at bedside. Patient agrees with discussion and after shared medical decision making agrees with discharge. All questions were answered to the patient's satisfaction. Patient will follow up with her PCP in 3-5 days. Patient was provided with s trict return precautions and instructed to return to the emergency department if any new or worsening symptoms develop. The patient was discharged in stable condition. Discharge Plan Discharge Clinical Impression: Localized swelling of lower leg Patient Disposition: Home Condition: Improved Instructions: Antibiotic Form, Leg Edema (ED) Additional Instructions: Please follow-up with the family doctor within the next 3-5 days. Return to emergency department for any new or worsening symptoms develop. Patient Language: New Zealander Prescriptions: No Action magnesium oxide 250 mg magnesium tablet 250 mg PO BID meloxicam 15 mg tablet 15 mg PO DAILY PRN (Reason: pain) Qty: 90 3RF vitamin B complex [B Complex-Vitamin B12] Tablet 1 tablet PO DAILY Vitamin D3 1 tab-cap PO DAILY levothyroxine [Synthroid] 100 mcg tablet 100 mcg PO DAILY Qty: 90 3RF Rx Instructions: brand name only Synthroid, do not substitute albuterol sulfate [ProAir HFA] 90 mcg/actuation HFA aerosol inhaler 2 puff INHALATION Q4H PRN (Reason: shortness of breath or wheezing) Qty: 8.5 11RF amlodipine 5 mg tablet 5 mg PO DAILY Qty: 90 3RF Follow-up/Referrals: Selwyn Flores MD [Primary Care Provider, Family Practice] - 3 Days Time of Disposition: 19:29
--- OUTSIDE RECORDS SUMMARY | 2025-05-01 19:33 | XMS_ITS | Encounter Summary ---
Author Organization [employer] Address 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
--- OUTSIDE RECORDS SUMMARY | 2025-05-01 19:33 | XMS_ITS | Encounter Summary ---
Author Organization [employer] Address [address] [place] [address] Care Team Providers Care Animal Caregiver Name Role Phone Selwyn Flores MD Primary Care Provider [phone] Encounter Details Date Type Department Care Team (Latest Contact Info) Description 03/25/2008 Outpatient Historical [facility] Boogie Rubi MD [address] [address] Malignant Neoplasm of Upper-Outer Quadrant of Female Breast (CMS/HCC) Social History Tobacco Use Types Packs/Day Years Used Date Smoking Tobacco: Never Assessed Comments Unknown Sex and Gender Information Value Date Recorded Sex Assigned at Not on file Legal Sex Female 5:30 AM MILD DISABILITIES TEACHER Gender Identity Not on file Sexual Orientation Not on file documented as of this encounter Plan of Treatment Not on file documented as of this encounter Visit Diagnoses Diagnosis Malignant neoplasm of upper-outer quadrant of female breast (CMS/HCC) Malignant neoplasm of upper-outer quadrant of female breast documented in this encounter Care Teams Animal Caregiver Relationship Specialty Start Date End Date Selwyn Flores MD [address] [place] [phone] PCP - General Family Practice 01/24/12 documented as of this encounter
--- OUTSIDE RECORDS SUMMARY | 2025-05-01 19:33 | XMS_ITS | Encounter Summary ---
Author Organization [facility] Address [address] [place] [address] Care Team Providers Care Skirt Trimmer Name Role Phone Selwyn Flores MD Primary Care Provider [phone] Encounter Details Date Type Department Care Team (Latest Contact Info) Description 09/23/2008 Outpatient Historical [facility] Boogie Rubi MD [address] [address] Malignant Neoplasm of Upper-Outer Quadrant of Female Breast (CMS/HCC) Social History Tobacco Use Types Packs/Day Years Used Date Smoking Tobacco: Never Assessed Comments Unknown Sex and Gender Information Value Date Recorded Sex Assigned at Not on file Legal Sex Female 5:30 AM SURGICAL GARMENT INSPECTOR Gender Identity Not on file Sexual Orientation Not on file documented as of this encounter Plan of Treatment Not on file documented as of this encounter Visit Diagnoses Diagnosis Malignant neoplasm of upper-outer quadrant of female breast (CMS/HCC) Malignant neoplasm of upper-outer quadrant of female breast documented in this encounter Care Teams Skirt Trimmer Relationship Specialty Start Date End Date Selwyn Flores MD [address] [place] [phone] PCP - General Family Practice 01/24/12 documented as of this encounter
--- OUTSIDE RECORDS SUMMARY | 2025-05-01 19:33 | XMS_ITS | Clinical Summary ---
Author Organization [facility] Address [address] 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 Gender Identity Not on file Sexual Orientation [...] 10:37 AM CDT Height 162.6 cm (5' 4) 01/24/2012 1:56 PM CDT Body Mass Index 19.91 01/24/2012 1:56 PM CDT Plan of Treatment Health Maintenance Due Date Last Done Comments DTAP/TDAP/TD VACCINES (1 - Tdap) 1965 PNEUMOCOCCAL VACCINE 50+ YEARS (1 of 1 - PCV) 09/02/18 97 ZOSTER VACCINE (1 of 2) 1996 OSTEOPOROSIS SCREENING 2011 RSV VACCINE (60+ or ) (1 - 1-dose 75+ series) 2021 INFLUENZA VACCINE (#1) 2025 Insurance MEDICARE PART A AND B [facility] OPTIONS [facility] [id number] Care Teams Windows Server Engineer Relationship Specialty Start Date End Date Selwyn Flores MD [address] [place] [phone] PCP - General Family Practice 01/24/12
--- OUTSIDE RECORDS SUMMARY | 2025-05-01 19:33 | XMS_ITS | Clinical Summary ---
Author Organization [facility] Address [address] [place] [address] Care Team Providers Care Generator Worker Name Role Phone Selwyn Flores MD Primary Care Provider [phone] Social History Tobacco Use Types Packs/Day Years [...] COVID-19 Vaccine ( - 2023-2 5 season) 2025 Meningococcal B Vaccine Aged Out No l onger eligible based on patient's age to complete this topic Meningococcal Vaccine Aged Out No [facility] eligible based on patient's age to complete this topic RSV Immunizations Under 20 Months Aged Out No longer eligible based on patient's age to complete this topic Insurance MEDICARE [facility] Care Teams Generator Worker Relationship Specialty Start Date End Date Selwyn Flores MD [address] [place] [address] [address] [place] [address] PCP - General FAMILY PRACTICE 09/18/19
--- OUTSIDE RECORDS SUMMARY | 2025-05-01 19:33 | XMS_ITS | Encounter Summary ---
Author Organization [employer] [facility] Address [address] [place] [address] Care Team Providers Care Visual Merchandising Director Name Role Phone Selwyn Flores MD Primary Care Provider [phone] Encounter Details Date Type Department Care Team (Latest Contact Info) Description 04/15/2008 Outpatient Historical [facility] Kristi Tolentino MD [address] [place] [address] Malignant Neoplasm of Breast (Female), Unspecified Site (CMS/HCC) Social History Tobacco Use Types Packs/Day Years Used Date Smoking Tobacco: Never Assessed Comments Unknown Sex and Gender Information Value Date Recorded Sex Assigned at Not on file 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 Gender Identity Not on file Sexual Orientation [...] AM CDT Narrative 04/16/2008 1:03 PM CDT [address] [address] Admit Date: 04/15/2008 MOLLY GUTIERREZ Sex: F Admit Prov: KRISTI TOLENTINO Date: 1945 Primary Care Prov: CMRN[facility] [id number] [id number] Ordering Prov: N/A Accession Number: [id number] Interpretation CHEST 2 VIEWS, 04/15/08 History: Breast [...] Procedure Note Ghada Mcdaniel MD - 04/16/[address] [address] Admit Date: 04/15/2008 MOLLY GUTIERREZ Sex: F Admit Prov: KRISTI TOLENTINO Date: 1945 Primary Care Prov: CMRN: [id number] [id number] [facility] Ordering Prov: N/A Interpretation CHEST [...] site documented in this encounter Care Teams Visual Merchandising Director Relationship Specialty Start Date End Date Selwyn Flores MD [address] [place] [phone] PCP - General Family Practice 01/24/12 documented as of this encounter
--- OUTSIDE RECORDS SUMMARY | 2025-05-01 19:33 | XMS_ITS | Encounter Summary ---
Author Organization [facility] Address 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
--- OUTSIDE RECORDS SUMMARY | 2025-05-01 19:33 | XMS_ITS | Encounter Summary ---
Author Organization [facility] Address 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
== END 2025-05-01 19:38 | disposition home or self-care (01) ==
LOC: ANHED 19:30
PROVIDERS: Emergency Provider Emergency Medicine; PCP Family Medicine
DX: M79.89 Other specified soft tissue disorders (principal)
CPT/HCPCS: 93971; 99284

== ENCOUNTER 2025-06-01 13:46 | Emergency (ER) | payer MEDICARE, SELFPAY ==
--- OUTSIDE RECORDS SUMMARY | 2009-11-09 11:15 | XMS_ITS | Continuity of Care Document ---
Author Organization [facility] Address [address] [facility] [address] [place] [address] Phone Care Team Providers Care Local Combination Truck Driver Name Role Phone Bhavna Bradford Unavailable Unavailable Procedures Procedure Date Eye Exam & Treatment Refraction Eye Exam, New Patient Advance Directives Directive Yes / No Effective Date File Name No Information Encounters Encounter Description Practice Location Reason(s) For Visit Diagnoses Date Provider Providers Copied on Encounter [facility], [address] [place] [address] [address], [place], [place], [id number], tel:[phone] [facility] No Information 6-201 0 Suzette Villeda [address] , [address], [place], [place], [facility], [place]. tel:[phone] [facility], [address] [place] [address] [address], [place], [place], [id number], tel:[phone] [facility] No Information 9-201 0 Suzette Villeda [address] , [address], [place], [address], [place]. tel:[phone] Family History Family Member Type Diagnosis Age At Onset No Information Payers Payer name Insurance type Covered alliance party ID Authorcaioa linda(s) [facility] Out Of State [id number] Social History Type Description Quantity Date Captured [...]
--- NOTE | ~2025-06-01 | XR_ITS ---
Examination: XR hip BI 2V w AP pelvis Clinical History: pain rt posterior lower rib to low back pain x 1 week fall Comparison: None Technique: AP pelvis, 2 views bilateral hip Findings/impression: 1. No fracture or dislocation either hip. 2. No pelvic fracture. Reviewed, dictated and finalized at location R.
--- NOTE | ~2025-06-01 | XR_ITS ---
EXAMINATION: [id number], 06/01/2025 14:20 CDT HISTORY: pain rt posterior lower rib to low back pain x 1 week fall COMPARISON: No comparisons available. Findings: No acute fracture or malalignment. No significant degenerative changes. The lungs demonstrate scattered calcified granulomas with chronic changes, no gross pneumothorax Impression: No acute fracture or malalignment. Reviewed, dictated and finalized at location P. Impression: No acute fracture or malalignment.
--- NOTE | ~2025-06-01 | XR_ITS ---
XR lumbar spine 2-3V Indication: pain rt posterior lower rib to low back pain x 1 week fall Comparison: None Findings: Grade 1 retrolisthesis of L2 on L3 L3 on L4, grade 1 anterolisthesis of L4 on L5, no acute fracture. Moderate to severe loss of disc height throughout Soft tissues unremarkable Impression: No acute abnormality. Reviewed, dictated and finalized at location P. Impression: No acute abnormality.
[2025-06-01 13:51] VITALS: BP 138/70; PULSE 66; RESP 16; TEMP 36.6; O2SAT 100
--- NOTE | 2025-06-01 14:29 | ED.GENADULT ---
HPI - General Adult General Chief complaint: Back Pain/Injury Stated complaint: Fall / Back Pain Source: patient Mode of arrival: ambulatory Limitations: no limitations History of Present Illness HPI narrative: Patient presents for evaluation of low back pain. She indicates she was playing tennis 9 days ago and fell backward, landing on her buttocks. She did not hit her head or have loss of consciousness. She is not on blood thinners. Approximately 2 days later she noted pain in the right lower back overlying her posterior ribs. She develops intermittent sharp pain in the area particular with certain movements, that she rates as 5/10 in severity. She also has a dull ache over the posterior pelvis that she rates as 2/10. No radicular component. No paresthesias. No bladder or bowel incontinence. No hematuria. She tried taking tylenol for her symptoms. She has an underyling history of osteopenia. Related Data Home Medications ?Medication ?Instructions ?Recorded ?Confirmed ?Last Taken ?Type Vitamin D3 1 tab-cap PO DAILY 07/19/21 06/01/25 08/03/21 07:00 History vitamin B complex (B 1 tablet PO DAILY 07/19/21 06/01/25 08/03/21 07:00 History Complex-Vitamin B12 tablet) magnesium oxide 250 mg PO BID 05/23/23 06/01/25 Unknown History Allergies Allergy/AdvReac Type Severity Reaction Status Date / Time Sulfa (Sulfonamide Allergy Severe Swelling Verified 06/01/25 14:00 Antibiotics) of Lip/Tongue/Throat sulfanilamide Allergy Severe Swelling Verified 06/01/25 14:00 of Lip/Tongue/Throat nickel Allergy Mild RED SKIN Verified 06/01/25 14:00 /ITCHING BEE STINGS Allergy Severe SEIZURES Uncoded 06/18/23 09:48 Review of Systems Review of Systems: CONSTITUTIONAL: Denies fever, chills, or sweats. EYES: Denies visual changes, redness, or discharge. ENT: Denies rhinorrhea, congestion, sore throat, or otalgia. CARDIOVASCULAR: Denies chest pain, palpitations, or edema. RESPIRATORY: Denies cough or dyspnea. GASTROINTESTINAL: Denies abdominal pain, nausea, vomiting, or diarrhea. GENITOURINARY: Denies dysuria or hematuria. SKIN: Denies rash or itching. MUSCULOSKELETAL: Reports right lower back pain and pain over the posterior pelvis NEUROLOGIC: Denies headache, numbness, dizziness, or weakness. PSYCHIATRIC: Denies anxiety or depression. [facility] Past Medical History Medical History Pain in right ankle (~04/28/25) Chronic pain of left knee Sore throat Cataract cortical, senile cataract surgery GERD (gastroesophageal reflux disease) Chronic bilateral low back pain with left-sided sciatica X-ray of the lumbar spine on 06/23/2024 with mild degenerative disc disease and arthritis. BMI 22.0-22.9, adult At low risk for fall Muscle spasm abdominal wall muscle At moderate risk for fall (~2021) step ladder collapsed, no problem with balance or falling Breast cancer screening by mammogram Normal mammogram 01/19/2021. Mammogram normal 03/01/2022. Mammogram 05/17/2023 Was unremarkable. Recheck 1 year. Normal mammogram 06/13/2024. Normal mammogram 05/01/2025. Osteopenia after menopause (~09/21/21) DEXA scan on 09/13/2021 with T-score -2.3 of the lumbar spine and -1.0 at the left hip and -1.0 at the right hip. Carpal tunnel syndrome, left BMI 21.0-21.9, adult Vertigo Acute bronchitis Chest x-ray on 08/17/2021 unremarkable. no Pneumonia Hypertension Onychomycosis UTI (urinary tract infection) Colon cancer screening colonoscopy on 08/04/2021 was normal. Recheck in 5 years for family history Plantar fasciitis, bilateral orthotics for 30 years Acute non-recurrent maxillary sinusitis Tarsal tunnel syndrome of both lower extremities orthotics help Carpal tunnel syndrome on both sides Chronic obstructive pulmonary disease, unspecified Mixed hyperlipidemia Overall excellent profile with total cholesterol 218, HDL 107, triglycerides 43, LDL 98 with ratio 2.0 on 11/02/2022. Cholesterol 236, HDL 111, triglycerides 79, LDL 108 with ratio of 2.1 on 11/07/2023. Cholesterol 236, triglycerides 74, HDL 112, LDL 89 with ratio of 1.9 on 06/19/2024. Cholesterol 217, triglycerides 58, HDL 114 with LDL 89 and ratio 1.9 on 01/20/2025. Surgical History Surgical History Hx of blepharoplasty Hx of carpal tunnel repair Hx of rotator cuff surgery Hx of breast reconstruction S/P foot surgery, left (~2021) Family History Family History Mother Hypertension Carcinoma of colon Family history of diabetes mellitus in first degree relative Family history of coronary artery disease, Onset Age: 88 Patient's mother is Grandparent Hypertension Cerebrovascular accident Family history of coronary artery disease Social History Social History Smoking status: Former smoker Tobacco type: cigarettes Second hand tobacco smoke exposure: No Smoking end date: 08/06/80 Additional smoking assessment comments: very light smoker- for 3 years back in 1960s (few cigarettes per day) Alcohol intake: current Drinks per week: 14 Alcohol use details: 2 glasses of wine per day Substance use: never Substance use type: does not use Lack of Transportation: No Lack of Food: Never True Current Housing: I Have Housing Concerned About Future Housing: No Difficulty Paying Gas/Electric Bills: No Difficulty Paying for Meds: No Currently Unemployed: No Education: Bachelor's Degree Difficulty w/ Childcare or Family Care: No Living arrangements: with family Exam Narrative: GENERAL: Well-appearing, well-nourished, and in no acute distress. HEAD: Normocephalic, atraumatic. EYES: PERRLA and EOMI. ENT: Nares clear, no rhinorrhea or epistaxis. Mucous membranes moist. Oropharynx without tonsillar hypertrophy exudate or other lesions. Bilateral TMs pearly costa nonbulging NECK: Supple. No adenopathy or masses. No carotid bruits or JVD CHEST: Clear to auscultation. No respiratory distress. No wheezes rales or rhonchi HEART: Regular rate and rhythm. No murmur heard. Normal peripheral pulses. ABDOMEN: Soft, nontender, nondistended, normal active bowel sounds. EXTREMITIES: Normal range of motion. No edema. BACK: there is tenderness over the right lower costal border posteriorly. There is no tenderness over the pelvis or hips. No tenderness in the midline or paraspinous muscles of the lumbar spine. No CVA tenderness SKIN: Warm, dry, no rash. NEURO: No focal deficits. Alert and oriented x3. PSYCH: Normal mood and affect. Course Course Emergency Course: This is a 79 year old female who presented for evaluation of back pain. She tenderness over the right posterior ribs without any CVA tenderness to suggest kidney injury. She is not experiencing any hematuria to suggest kidney injury. X-rays of the ribs, lumbar spine, pelvis and hips were all negative. Exam consistent with myofascial strain and contusion. I did offer to provide her with a prescription for pain medication. She declined. She will take [id number] agents. Application of warm moist heat may help. Epsom salt baths may reduce pain. Patient has an appointment with her primary care provider today. She will keep that appointment. Go to the ER for intractable pain. Patient in agreement with plan of care. Level of Care: Express Care Visit Vital Signs Vital signs: Vital Signs Temperature 36.6 C 06/01/25 13:51 Pulse Rate 66 06/01/25 13:51 Respiratory Rate 16 06/01/25 13:51 Blood Pressure 138/70 06/01/25 13:51 Pulse Oximetry 100 06/01/25 13:51 Oxygen Delivery Room Air 06/01/25 13:51 Temperature 36.6 C 06/01/25 13:51 Pulse Rate 66 06/01/25 13:51 Respiratory Rate 16 06/01/25 13:51 Blood Pressure 138/70 06/01/25 13:51 Pulse Oximetry 100 06/01/25 13:51 Oxygen Delivery Room Air 06/01/25 13:51 Medical Decision Making Vital Signs Vital Signs: Vital Signs Temperature 36.6 C 06/01/25 13:51 Pulse Rate 66 06/01/25 13:51 Respiratory Rate 16 06/01/25 13:51 Blood Pressure 138/70 06/01/25 13:51 Pulse Oximetry 100 06/01/25 13:51 Oxygen Delivery Room Air 06/01/25 13:51 Temperature 36.6 C 06/01/25 13:51 Pulse Rate 66 06/01/25 13:51 Respiratory Rate 16 06/01/25 13:51 Blood Pressure 138/70 06/01/25 13:51 Pulse Oximetry 100 06/01/25 13:51 Oxygen Delivery Room Air 06/01/25 13:51 Imaging Data Radiologist's impression: Examination: XR hip BI 2V w AP pelvis Clinical History: pain rt posterior lower rib to low back pain x 1 week fall Comparison: None Technique: AP pelvis, 2 views bilateral hip Findings/impression: 1. No fracture or dislocation either hip. 2. No pelvic fracture. EXAMINATION: [id number], 06/01/2025 14:20 CDT HISTORY: pain rt posterior lower rib to low back pain x 1 week fall COMPARISON: No comparisons available. Findings: No acute fracture or malalignment. No significant degenerative changes. The lungs demonstrate scattered calcified granulomas with chronic changes, no gross pneumothorax Impression: No acute fracture or malalignment. XR lumbar spine 2-3V Indication: pain rt posterior lower rib to low back pain x 1 week fall Comparison: None Findings: Grade 1 retrolisthesis of L2 on L3 L3 on L4, grade 1 anterolisthesis of L4 on L5, no acute fracture. Moderate to severe loss of disc height throughout Soft tissues unremarkable Impression: No acute abnormality. Discharge Plan Discharge Clinical Impression: Acute myofascial strain, Back contusion Patient Disposition: Home Condition: Stable Instructions: Antibiotic Form, Muscle Strain (DC), Contusion in Adults (ED) Additional Instructions: APPLICATION OF WARM MOIST HEAT SHOULD HELP EPSOM SALT BATHS MAY REDUCE YOUR PAIN STRETCH BEFORE EXERCISING Patient Language: Mongolian Prescriptions: No Action magnesium oxide 250 mg magnesium tablet 250 mg PO BID meloxicam 15 mg tablet 15 mg PO DAILY PRN (Reason: pain) Qty: 90 3RF losartan 100 mg tablet 100 mg PO DAILY Qty: 90 3RF vitamin B complex [B Complex-Vitamin B12] Tablet 1 tablet PO DAILY Vitamin D3 1 tab-cap PO DAILY levothyroxine [Synthroid] 100 mcg tablet 100 mcg PO DAILY Qty: 90 3RF Rx Instructions: brand name only Synthroid, do not substitute albuterol sulfate [ProAir HFA] 90 mcg/actuation HFA aerosol inhaler 2 puff INHALATION Q4H PRN (Reason: shortness of breath or wheezing) Qty: 8.5 11RF amlodipine 5 mg tablet 5 mg PO DAILY Qty: 90 3RF Follow-up/Referrals: Selwyn Flores MD [Primary Care Provider, Family Practice] Time of Disposition: 14:55
--- OUTSIDE RECORDS SUMMARY | 2025-06-01 15:22 | XMS_ITS | Encounter Summary ---
Author Organization [facility] Address 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 Gender Identity Not on file Sexual [...] AM CDT Narrative 04/16/2008 1:03 PM CDT [address] [address] Admit Date: 04/15/2008 MOLLY GUTIERREZ Sex: F Admit Prov: KRISTI TOLENTINO Date: 1945 Primary Care Prov: CMRN: [id number] [id number] [facility] Ordering Prov: N/A Accession Number: [id number] Interpretation CHEST 2 VIEWS, 04/15/08 History: Breast [...] Procedure Note Ghada Mcdaniel MD - 04/16/[address] [address] Admit Date: 04/15/2008 MOLLY GUTIERREZ Sex: F Admit Prov: KRISTI TOLENTINO Date: 1945 Primary Care Prov: CMRN: [id number] [facility] [id number] IM[facility]ING SERVICES Ordering Prov: N/A Interpretation CHEST [...] site documented in this encounter Care Teams Laborer Chicken Farm Relationship Specialty Start Date End Date Selwyn Flores MD [address] [place] [address] PCP - General Family Practice 01/24/12 documented as of this encounter
--- OUTSIDE RECORDS SUMMARY | 2025-06-01 15:22 | XMS_ITS | Encounter Summary ---
Author Organization [employer] Address 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
--- OUTSIDE RECORDS SUMMARY | 2025-06-01 15:22 | XMS_ITS | Clinical Summary ---
Author Organization [facility] Address [address] [place] [address] Phone Care Team Providers Care Steam Locomotive Firer/Fireman Name Role Phone Selwyn Flores MD Primary Care Provider Allergies Active Allergy Reactions Criticality Noted Date [...] on file Legal Sex Female 5:30 AM SUSTAINABILITY COACH Gender Identity Not on file Sexual Orientation [...] 2025 Insurance MEDICARE PART A AND B [facility] OPTIONS [facility] [id number] Care Teams Steam Locomotive Firer/Fireman Relationship Specialty Start Date End Date Selwyn Flores MD [address] [place] [phone] PCP - General Family Practice 01/24/12
--- OUTSIDE RECORDS SUMMARY | 2025-06-01 15:22 | XMS_ITS | Clinical Summary ---
Author Organization [facility] Address [address] [place] [address] Care Team Providers Care Navy Seal Name Role Phone Selwyn Flores MD Primary Care Provider [phone] Social History Tobacco Use Types Packs/Day Years [...] 75+ series) 2021 COVID-19 Vaccine ( - 2024-2 6 season) 2025 Influenza Adult (#1) 2025 Hepatitis A Vaccines Aged Out No long er eligible based on patient's age to complete this topic Meningococcal B Vaccine Aged Out No l onger eligible based on patient's age to complete this topic Meningococcal Vaccine Aged Out No [facility] eligible based on patient's age to complete this topic RSV Immunizations Under 20 Months Aged Out No longer eligible based on patient's age to complete this topic Insurance MEDICARE [facility] Care Teams Navy Seal Relationship Specialty Start Date End Date Selwyn Flores MD [address] [place] [address] [address] [place] [address] PCP - General FAMILY PRACTICE 09/18/19
--- OUTSIDE RECORDS SUMMARY | 2025-06-01 15:22 | XMS_ITS | Encounter Summary ---
Author Organization [employer] Address [address] [place] [address] Care Team Providers Care Linseed Cake Trimmer Name Role Phone Selwyn Flores MD Primary Care Provider [phone] Encounter Details Date Type Department Care Team (Latest Contact Info) Description 09/23/2008 Outpatient Historical [facility] Boogie Rubi MD [address] [address] Malignant Neoplasm of Upper-Outer Quadrant of Female Breast (CMS/HCC) Social History Tobacco Use Types Packs/Day Years Used Date Smoking Tobacco: Never Assessed Comments Unknown Sex and Gender Information Value Date Recorded Sex Assigned at Not on file Legal Sex Female 5:30 AM [employer] Gender Identity Not on file Sexual Orientation Not on file documented as of this encounter Plan of Treatment Not on file documented as of this encounter Visit Diagnoses Diagnosis Malignant neoplasm of upper-outer quadrant of female breast (CMS/HCC) Malignant neoplasm of upper-outer quadrant of female breast documented in this encounter Care Teams Linseed Cake Trimmer Relationship Specialty Start Date End Date Selwyn Flores MD [address] [place] [phone] PCP - General Family Practice 01/24/12 documented as of this encounter
--- OUTSIDE RECORDS SUMMARY | 2025-06-01 15:22 | XMS_ITS | Encounter Summary ---
Author Organization [employer] Address 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
--- OUTSIDE RECORDS SUMMARY | 2025-06-01 15:22 | XMS_ITS | Encounter Summary ---
Author Organization [employer] Address 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
--- OUTSIDE RECORDS SUMMARY | 2025-06-01 15:22 | XMS_ITS | Encounter Summary ---
Author Organization [employer] Address 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
== END 2025-06-01 14:57 | disposition home or self-care (01) ==
PROVIDERS: Emergency Provider Nurse Practitioner; PCP Family Medicine
DX: S30.0XXA Contusion of lower back and pelvis, initial encounter (principal); S29.012A Strain of muscle and tendon of back wall of thorax, initial encounter; W19.XXXA Unspecified fall, initial encounter; Y93.73 Activity, racquet and hand sports; I10 Essential (primary) hypertension; K21.9 Gastro-esophageal reflux disease without esophagitis; M85.80 Other specified disorders of bone density and structure, unspecified site; E78.2 Mixed hyperlipidemia; Z87.891 Personal history of nicotine dependence
CPT/HCPCS: 71101; 72100; 73521; 99214; G0463

== ENCOUNTER 2025-06-17 08:07 | Outpatient (CLI) | payer MEDICARE, SELFPAY ==
--- OUTSIDE RECORDS SUMMARY | 2009-11-09 10:15 | XMS_ITS | Continuity of Care Document ---
Author Organization [facility] Address [address] [facility] [address] [place] [address] Phone Care Team Providers Care Childbirth Educator Name Role Phone Bhavna Bradford Unavailable Unavailable Procedures Procedure Date Eye Exam & Treatment Refraction Eye Exam, New Patient Advance Directives Directive Yes / No Effective Date File Name No Information Encounters Encounter Description Practice Location Reason(s) For Visit Diagnoses Date Provider Providers Copied on Encounter [facility], [address] [place] [address] [address], [place], [place], [id number], tel:[phone] [facility] No Information 6-201 0 Suzette Villeda [address] , [address], [place], [place], [facility], [place]. tel:[phone] [facility], [address] [place] [address] [address], [place], [place], [id number], tel:[phone] [facility] No Information 9-201 0 Suzette Villeda [address] , [address], [place], [address], [place]. tel:[phone] Family History Family Member Type Diagnosis Age At Onset No Information Payers Payer name Insurance type Covered constitution party ID Authorcaioa linda(s) [facility] Out Of State [id number] Social History Type Description Quantity Date Captured Comments Sex Female Smoking Status No Information Chief Complaint And Reason For Visit No Information Reason For Referral Reason For Referral No Information History Of Present Illness Encounter Date Complaint History Of Prese nt Illness No Information Functional Status Date Functional Assessmen t No Information Instructions Date Instruction Additional Infor mation No Information Assessments Type Assessment Date No Information Patient Care Teams Name Effective Dates (start - stop) Status Members No Information
--- NOTE | 2025-06-17 08:11 | ECHO_ITS ---
Patient Info Name: Molly Gutierrez Age: 79 years : 1945 Gender: Female Ht: 63 in Wt: 117 lbs BSA: 1.54 m2 HR: 68 bpm BP: 155 / 91 mmHg Heart Rhythm: Sinus Rhythm Technical Quality: Good Exam Date: 06/17/2025 8:13 AM Patient Status: O Admit Date: 06/17/2025 Exam Type: CA echo doppler color flow Complete two-dimensional, color flow and Doppler transthoracic echocardiogram is performed. Packing Clerk: Melisa Nascimento Attending Provider: Selwyn Flores Summary 1. Complete two-dimensional, color flow and Doppler transthoracic echocardiogram is performed. 2. Left ventricular chamber dimension is normal. 3. Left ventricular systolic function is normal, estimated at 65-70. 4. The left ventricular diastolic function is grade I diastolic dysfunction. 5. E/e' 12 is mildly elevated. 6. Left atrial chamber dimension is mildly enlarged. 7. There is trace mitral valve regurgitation. 8. There is mild tricuspid valve regurgitation. 9. No pulmonary hypertension, estimated pulmonary arterial systolic pressure is 29 mmHg. Left Ventricle E/e' 12 is mildly elevated. Left ventricular chamber dimension is normal. Left ventricular systolic function is normal, estimated at 65-70. The left ventricular diastolic function is grade I diastolic dysfunction. Right Ventricle Right ventricular chamber dimension is normal. Right ventricular systolic function is normal and with normal TAPSE 2.5 cm. Left Atria Left atrial chamber dimension is mildly enlarged. Right Atria Right atrial chamber dimension is normal. Aortic Valve The aortic valve is trileaflet. There is no aortic valve stenosis. There is no aortic valve regurgitation. Pulmonic Valve There is no pulmonic regurgitation. Mitral Valve There is no mitral valve stenosis. There is trace mitral valve regurgitation. Tricuspid Valve There is mild tricuspid valve regurgitation. No pulmonary hypertension, estimated pulmonary arterial systolic pressure is 29 mmHg. Pericardium/Pleural There is no pericardial effusion. Inferior Vena Cava Normal inferior vena cava with >50% collapse upon inspiration consistent with normal right atrial pressure, 5 mmHg. Aorta The aortic root size at the sinus of Valsalva is normal. Left Ventricular Outflow Tract Name Value Normal LVOT 2D LVOT Diameter 2.0 cm LVOT Doppler LVOT Peak Velocity 127 cm/s LVOT Peak Gradient 6 mmHg LVOT Mean Gradient 3 mmHg LVOT VTI 28 cm LVOT VTI/AV VTI Ratio 0.9 LVOT Stroke Volume 88 ml LVOT CO 5.8 l/min LVOT CI 3.8 l/min/m2 Pulmonic Valve Name Value Normal RVOT Doppler RVOT Peak Velocity 70 cm/s RVOT Peak Gradient 2 mmHg PV Doppler PV Peak Velocity 93 cm/s PV Peak Gradient 3 mmHg Mitral Valve Name Value Normal MV Diastolic Function MV E Peak Velocity 91 cm/s MV A Peak Velocity 99 cm/s MV E/A 0.9 MV Decel Time (PW) 217 ms MV Annular TDI MV E/e' (Septal) 13.1 MV E/e' (Lateral) 11.8 MV E/e' (Average) 12.4 Tricuspid Valve Name Value Normal TV Regurgitation Doppler TR Peak Velocity 243 cm/s TR Peak Gradient 24 mmHg Estimated PAP/RSVP RA Pressure 5 mmHg <=5 PA Systolic Pressure 29 mmHg <36 RV Systolic Pressure 29 mmHg <36 TV Annular TDI TV Lateral Peg s' Velocity 14.3 cm/s >=9.5 Aorta Name Value Normal Ascending Aorta Ao Root Diameter (MM) 2.6 cm Ao Root Diam Index (MM) 1.7 cm/m2 Aortic Valve Name Value Normal AV Doppler AV Peak Velocity 148 cm/s AV Peak Gradient 9 mmHg AV Mean Gradient 4 mmHg AV VTI 31 cm AV Area (Cont Eq VTI) 2.9 cm2 >=3.0 AV Area (Cont Eq Henrry) 2.7 cm2 AV DI (Henrry) 0.86 AV Regurgitation 2D LVOT Area 3.1 cm2 Ventricles Name Value Normal LV Dimensions 2D/MM IVS Diastolic Thickness (2D) 0.9 cm 0.6-1.0 LVID Diastole (2D) 4.2 cm 3.8-5.2 LVIW Diastolic Thickness (2D) 0.8 cm 0.6-0.9 LVID Systole (2D) 2.3 cm 2.2-3.5 LVOT Diameter 2.0 cm LV Mass (2D Cubed) 112.51 g 67.00-162.00 LV Mass Index (2D Cubed) 73 g/m2 43-95 Relative Wall Thickness (2D) 0.40 <=0.42 LV Fractional Shortening/Ejection Fraction 2D/MM LV Fractional Shortening (2D) 45 % 27-45 LV EF (2D Teichholz) 77 % LV Diastolic Volume (4C MOD) 37 ml LV EF (4C MOD) 77 % LV Diastolic Volume (2C MOD) 49 ml LV EF (2C MOD) 72 % LV Diastolic Volume (BP MOD) 43 ml 46-106 LV Diastolic Volume Index (BP MOD) 28 ml/m2 29-61 LV Systolic Volume (BP MOD) 11 ml 14-42 LV Systolic Volume Index (BP MOD) 7 ml/m2 8-24 LV EF (BP MOD) 75 % 54-74 LV Diastolic Length (4C) 6.7 cm LV Systolic Length (4C) 5.7 cm LV Stroke Volume (4C MOD) 28 ml Atria Name Value Normal LA Dimensions LA Dimension (MM) 4.0 cm 2.7-3.8 LA Volume (4C A-L) 40 ml LA Volume (BP A-L) 47 ml RA Dimensions RA Area (4C) 13.9 cm2 <=18.0 Report Signatures
--- NOTE | 2025-06-17 08:11 | EST_ITS ---
Patient Info Name: Molly Gutierrez Age: 79 years : 1945 Gender: Female Ht: 63 in Wt: 117 lbs BSA: 1.54 m2 HR: 68 bpm BP: 146 / 74 mmHg Exam Date: 06/17/2025 8:11 AM Patient Status: O Admit Date: 06/17/2025 Exam Type: CA stress test treadmill A treadmill exercise stress test was performed. Staff Attending Provider: Selwyn Flores Exercise Technologist: Aurora Toure Exercise Physician: Cole Valero DO Summary 1. 1. Negative Mingo exercise stress test for ischemic ST changes by ECG criteria. 2. 2. Good functional capacity, achieving 8.6 METs of workload. 3. 3. Baseline hypertension. 4. 4. Appropriate HR response to exercise. 5. 5. Appropriate HR recovery at 1 minute post exercise. 6. 6. No imaging with stress testing. 7. 7. Patient informed of the above results. Protocol: Mingo Stress ECG Details Stage: REST Duration (min): 0 min : 57 sec Speed (mph): 0.0 Grade (%): 0 HR (bpm): 68 SBP (mmHg): 146 DBP (mmHg): 74 METS: --- Stage: REST Duration (min): 2 min : 52 sec Speed (mph): 0.0 Grade (%): 0 HR (bpm): 73 SBP (mmHg): 146 DBP (mmHg): 74 METS: --- Stage: STAGE 1 Duration (min): 1 min : 0 sec Speed (mph): 1.7 Grade (%): 10 HR (bpm): 89 SBP (mmHg): 146 DBP (mmHg): 74 METS: --- Stage: STAGE 1 Duration (min): 2 min : 0 sec Speed (mph): 1.7 Grade (%): 10 HR (bpm): 93 SBP (mmHg): 146 DBP (mmHg): 74 METS: --- Stage: STAGE 1 Duration (min): 3 min : 0 sec Speed (mph): 1.7 Grade (%): 10 HR (bpm): 95 SBP (mmHg): 159 DBP (mmHg): 81 METS: --- Stage: STAGE 2 Duration (min): 1 min : 0 sec Speed (mph): 2.5 Grade (%): 12 HR (bpm): 101 SBP (mmHg): 159 DBP (mmHg): 81 METS: --- Stage: STAGE 2 Duration (min): 2 min : 0 sec Speed (mph): 2.5 Grade (%): 12 HR (bpm): 106 SBP (mmHg): 156 DBP (mmHg): 84 METS: --- Stage: STAGE 2 Duration (min): 3 min : 0 sec Speed (mph): 2.5 Grade (%): 12 HR (bpm): 108 SBP (mmHg): 156 DBP (mmHg): 84 METS: --- Stage: STAGE 3 Duration (min): 0 min : 53 sec Speed (mph): 3.4 Grade (%): 14 HR (bpm): 121 SBP (mmHg): 162 DBP (mmHg): 85 METS: --- Stage: RECOVERY Duration (min): 0 min : 6 sec Speed (mph): 1.5 Grade (%): 0 HR (bpm): 122 SBP (mmHg): 162 DBP (mmHg): 85 METS: --- Stage: RECOVERY Duration (min): 1 min : 6 sec Speed (mph): 0.0 Grade (%): 0 HR (bpm): 91 SBP (mmHg): 162 DBP (mmHg): 85 METS: --- Stage: RECOVERY Duration (min): 2 min : 6 sec Speed (mph): 0.0 Grade (%): 0 HR (bpm): 90 SBP (mmHg): 162 DBP (mmHg): 85 METS: --- Stage: RECOVERY Duration (min): 3 min : 6 sec Speed (mph): 0.0 Grade (%): 0 HR (bpm): 80 SBP (mmHg): 157 DBP (mmHg): 84 METS: --- Stage: RECOVERY Duration (min): 4 min : 6 sec Speed (mph): 0.0 Grade (%): 0 HR (bpm): 77 SBP (mmHg): 157 DBP (mmHg): 84 METS: --- Stage: RECOVERY Duration (min): 5 min : 6 sec Speed (mph): 0.0 Grade (%): 0 HR (bpm): 81 SBP (mmHg): 159 DBP (mmHg): 85 METS: --- Stage: RECOVERY Duration (min): 5 min : 17 sec Speed (mph): 0.0 Grade (%): 0 HR (bpm): 75 SBP (mmHg): 159 DBP (mmHg): 85 METS: --- Rest HR: 73 bpm Peak HR: 122 bpm Rest Sys BP: 146 mmHg Peak Sys BP: 162 mmHg Max Pred HR: 142 bpm % Max Pred HR: 86 % Target HR: 121 bpm Max RPP: 19,764 bpm*mmHg Nickerson Score: -0 Termination Reason: Reached target heart rate or workload Cardiac Symptoms: None Max ST Seg Deviation: -1.40 mm Total Time: 6 min : 53 sec Rest Moreira BP: 74 mmHg Peak Moreira BP: 85 mmHg Angina Score: None Total METS: 8.6 Resting ECG Sinus rhythm. Stress ECG No ST changes. Arrhythmias None. Report Signatures
--- OUTSIDE RECORDS SUMMARY | 2025-06-17 08:12 | XMS_ITS | Encounter Summary ---
Author Organization [employer] [facility] Address 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 Gender Identity Not on file Sexual Orientation [...] CDT Narrative 04/16/2008 1:03 PM CDT [address] [address] Admit Date: 04/15/2008 MOLLY GUTIERREZ Sex: F Admit Prov: KRISTI TOLENTINO Date: 1945 Primary Care Prov: CMRN: [id number] [id number] Ordering Prov: N/A Accession Number: [id number] Interpretation CHEST 2 VIEWS, 04/15/08 History: Breast [...] Note Ghada Mcdaniel MD - 04/16/[address] [address] Admit Date: 04/15/2008 MOLLY GUTIERREZ Sex: F Admit Prov: KRISTI TOLENTINO Date: 1945 Primary Care Prov: CMRN: [id number] [id number] IM[facility] Ordering Prov: N/A Interpretation CHEST [...] site documented in this encounter Care Teams Cable Splicing Technician Relationship Specialty Start Date End Date Selwyn Flores MD [address] [place] [phone] PCP - General Family Practice 01/24/12 documented as of this encounter
--- OUTSIDE RECORDS SUMMARY | 2025-06-17 08:12 | XMS_ITS | Encounter Summary ---
Author Organization [employer] Address 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
--- OUTSIDE RECORDS SUMMARY | 2025-06-17 08:12 | XMS_ITS | Encounter Summary ---
Author Organization [employer] Address 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
--- OUTSIDE RECORDS SUMMARY | 2025-06-17 08:12 | XMS_ITS | Clinical Summary ---
Author Organization [facility] Address [address] [place] [address] Care Team Providers Care Batch Mixing Truck Driver Name Role Phone Selwyn Flores MD Primary Care Provider [phone] Social History Tobacco Use Types Packs/Day Years [...] age to complete this topic Insurance MEDICARE [facility] Care Teams Batch Mixing Truck Driver Relationship Specialty Start Date End Date Selwyn Flores MD [address] [place] [address] [address] [place] [address] PCP - General FAMILY PRACTICE 09/18/19
--- OUTSIDE RECORDS SUMMARY | 2025-06-17 08:12 | XMS_ITS | Encounter Summary ---
Author Organization [employer] Address 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
--- OUTSIDE RECORDS SUMMARY | 2025-06-17 08:12 | XMS_ITS | Encounter Summary ---
Author Organization [employer] Address 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
--- OUTSIDE RECORDS SUMMARY | 2025-06-17 08:12 | XMS_ITS | Encounter Summary ---
Author Organization [employer] Address 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
--- OUTSIDE RECORDS SUMMARY | 2025-06-17 08:12 | XMS_ITS | Clinical Summary ---
Author Organization [employer] [facility] Address [address] [place] 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
== END 2025-06-17 08:08 | disposition home or self-care (01) ==
PROVIDERS: PCP Family Medicine; Visit Provider Family Medicine
DX: R06.09 Other forms of dyspnea (principal); I11.9 Hypertensive heart disease without heart failure; I36.1 Nonrheumatic tricuspid (valve) insufficiency
CPT/HCPCS: 93017; 93306

== ENCOUNTER 2025-06-24 09:39 | Outpatient (CLI) | payer MEDICARE, SELFPAY ==
--- NOTE | ~2025-06-24 | US_ITS ---
EXAMINATION: US thyroid DATE: 06/24/2025 10:18 INDICATION: Nontoxic goiter TECHNIQUE: Multiple ultrasound images of the thyroid were obtained. COMPARISON: None. FINDINGS: The right thyroid lobe measures 7.3 x 3.0 x 2.5 cm. The left thyroid lobe measures 7.2 x 3.2 x 2.9 cm. There are bilateral thyroid nodules. The largest include a 2.1 cm solid hypoechoic wider than tall nodule with smooth margins and without echogenic foci (TI-RADS 4, moderately suspicious , FNA if >=1.5 cm, annual followup is >=1 cm) in the right thyroid lobe which was not measured on the prior study but appears without significant change. There is a second 2.3 cm predominantly solid isoechoic nodule which is wider than tall with smooth to ill-defined margins and without echogenic foci (TI-RADS 3, mildly suspicious , FNA if >=2.5 cm, annual followup is >=1.5 cm) also in the right thyroid lobe. Th ere are a couple additional solid isoechoic TI RADS 3 nodules in the left thyroid lobe, the larger measuring 4.2 cm and the smaller measuring 2.8 cm. There is a 6 mm coarse shadowing calcification between the 2 nodules. Finally at the inferior left thyroid there is a 1.9 cm solid nodule with lobular rim calcified margins (TI-RADS 5, highly suspicious , FNA if >=1.0 cm, annual followup is >0.5 cm). IMPRESSION: 1. Multinodular goiter. Recommend ultrasound-guided biopsy of the 1.9 cm TI RADS 5 nodule at the inferior left thyroid lobe and the 2.1 cm TI RADS 4 right thyroid nodule. Reviewed, dictated and finalized at location [facility] IMPRESSION: 1. Multinodular goiter. Recommend ultrasound-guided biopsy of the 1.9 cm TI RAD S 5 nodule at the inferior left thyroid lobe and the 2.1 cm TI RADS 4 right thy roid nodule.
== END 2025-06-24 09:40 | disposition home or self-care (01) ==
LOC: MICIMG 09:40
PROVIDERS: PCP Family Medicine; Visit Provider Obstetrics & Gynecology
DX: E04.2 Nontoxic multinodular goiter (principal)
CPT/HCPCS: 76536